=== PATIENT | male | born 1990 | race Caucasian/White ===

== ENCOUNTER 2016-07-12 14:44 | Emergency (ER) | payer OTHER ==
[~2016-07-12] VITALS: Ht 182.9 cm; Wt 123.7 kg
[~2016-07-12 14:44] MED LIST: ALPRAZOLAM0.25 M2; BUPROPION HCL150 M2; LISINOPRIL-HCT1 EAC3; METOPROLOL SUCC50 MG PO; MODAFINIL100 MG PO; NAPROXEN500 MG PO; NO HOME MEDS; PAROXETINE HCL30 MG PO; Percocet 5/325,Endoc PO
[2016-07-12] MEDS ORDERED: LISINOPRIL (15:27)
[2016-07-12] MEDS ORDERED: BUPROPION XL150 MG PO (15:27)
[2016-07-12 15:56] LABS: HEMATOCRIT 41.6 % (38.0-50.0); MCH 27.1 PG (29.0-34.0); MCHC 33.9 G/DL (30.0-36.0); PLATELET COUNT 248 K/uL (156-360); RBC DIS.WIDTH-CV 13.1 % (11.8-14.6); RBC DIS.WIDTH-SD 37.4 % (39-53); WHITE BLOOD COUNT 8.2 K/uL (4.1-10.2)
[2016-07-12 16:07] LABS: CHLORIDE 108 mEq/L (99-109); POTASSIUM 3.6 mEq/L (3.7-5.4); SODIUM 142 mEq/L (136-147)
[2016-07-12 16:08] LABS: GLUCOSE 119 mg/dL (70-99)
[2016-07-12 16:10] LABS: ANION GAP 11 MEQ/L (2-14)
[2016-07-12 16:12] LABS: GFR ESTIMATE (CALCULATED) > 59 mL/min/
[2016-07-12 16:13] LABS: UREA NITROGEN (BUN) 13 mg/dL (9-23)
[2016-07-12 16:58] LABS: BILIRUBIN NEGATIVE; BLOOD NEGATIVE; COLOR YELLOW ((YELLOW)); GLUCOSE (STRIP) NEGATIVE; KETONES 5; LEUKOCYTES NEGATIVE; NITRITE NEGATIVE; PROTEIN (STRIP) NEGATIVE; SPECIFIC GRAVITY 1.032 (1.000-1.030); UROBILINOGEN 0.2 MG/DL (0.2-1.0)
[2016-07-12 17:07] LABS: ADD MIUA? NO; UCUL ADDED? NO
[2016-07-12 18:41] VITALS: BP 132/94
== END 2016-07-12 18:41 | disposition home or self-care (01) ==
LOC: EME 14:44
PROVIDERS: Emergency Medicine
DX: F32.9 Major depressive disorder, single episode, unspecified (principal); I10 Essential (primary) hypertension; G47.30 Sleep apnea, unspecified
CPT/HCPCS: 80048; 81003; 85027; 90839; 99281; 99284